=== PATIENT | female | born 1975 | race Caucasian/White ===

== ENCOUNTER 2016-10-03 07:39 | Emergency (ER) | payer SELFPAY ==
[~2016-10-03] VITALS: Ht 162.6 cm; Wt 64.1 kg
[2016-10-03] MEDS ORDERED: NAPROXEN500 MG PO (08:31)
[2016-10-03] MEDS ORDERED: PERCOCET 5/31 TABLET PO (08:31)
[2016-10-03 08:38] VITALS: BP 108/73
== END 2016-10-03 08:39 | disposition home or self-care (01) ==
LOC: EXP 07:39 → EDBD 07:39 → EME 07:39 → EXP 08:39
PROC: 0H9DXZZ Drainage of Right Lower Arm Skin, External Approach (ICD-10-PCS; principal; 2016-10-03)
DX: L03.113 Cellulitis of right upper limb (principal); L02.413 Cutaneous abscess of right upper limb
CPT/HCPCS: 87070; 87075; 87077; 87147; 87186; 87205; 99281; 99284

== ENCOUNTER 2016-10-05 08:15 | Emergency (ER) | payer SELFPAY ==
[~2016-10-05] VITALS: Ht 162.6 cm; Wt 64.6 kg
[~2016-10-05 08:15] MED LIST: NAPROXEN500 MG PO; PERCOCET 5/31 TABLET PO
[2016-10-05 09:18] VITALS: BP 112/67
[2016-10-05] MEDS ORDERED: NAPROXEN500 MG PO (09:19)
== END 2016-10-05 09:20 | disposition home or self-care (01) ==
LOC: EME 08:15
DX: Z48.01 Encounter for change or removal of surgical wound dressing (principal); L02.413 Cutaneous abscess of right upper limb; Z86.73 Personal history of transient ischemic attack (TIA), and cerebral infarction without residual deficits; F17.200 Nicotine dependence, unspecified, uncomplicated
CPT/HCPCS: 99281; 99283